=== PATIENT | male | born 1980 ===

== ENCOUNTER 2017-07-13 10:36 | Emergency (ER) | payer OTHER ==
[2017-07-13 10:51] VITALS: BMI 21.0
[2017-07-13 10:53] VITALS: BP 119/73; PULSE 84; RESP 20; TEMP 97.7; O2SAT 98
--- NOTE | 2017-07-13 11:45 | ED PDOC ---
Lower Extremity Pain/Injury Time Seen by Provider: 07/13/17 10:58 Chief Complaint (Nursing): Lower Extremity Problem/Injury Chief Complaint (Provider): Right Toe Injury History Per: Patient History/Exam Limitations: no limitations Current Symptoms Are (Timing): Still Present Additional Complaint(s): Erich is a 37 y/o male who presents to the ED complaining of bruising to his right big toe after hitting his foot accidentally. He has no past medical history or associated symptoms. PMD: None Provided Past Medical History Reviewed: Historical Data, Nursing Documentation, Vital Signs Vital Signs: Last Vital Signs Temp 97.7 F 07/13/17 10:51 Pulse 84 07/13/17 10:51 Resp 20 07/13/17 10:51 BP 119/73 07/13/17 10:51 Pulse Ox 98 07/13/17 10:51 - Medical History PMH: No Chronic Diseases - Surgical History Surgical History: No Surg Hx - Family History Family History: States: Unknown Family Hx - Allergies Allergies/Adverse Reactions: Allergies Allergy/AdvReac Type Severity Reaction Status Date / Time No Known Allergies Allergy Verified 07/13/17 11:02 Review of Systems ROS Statement: Except As Marked, All Systems Reviewed And Found Negative Musculoskeletal: Positive for: Foot Pain (right big toe) Physical Exam - Reviewed Nursing Documentation Reviewed: Yes Vital Signs Reviewed: Yes - Physical Exam Appears: Positive for: Well, No Acute Distress Cardiovascular/Chest: Negative for: Murmur Respiratory: Negative for: Respiratory Distress Pulses-Dorsalis Pedis (L): 2+ Pulses-Dorsalis Pedis (R): 2+ Extremity: Positive for: Normal ROM, Tenderness (right big toe), Capillary Refill (<2 seconds), Deformity (hematoma right big toe), Swelling. Negative for : Pedal Edema Neurologic/Psych: Positive for: Alert, Oriented. Negative for: Motor/Sensory Deficits - ECG O2 Sat by Pulse Oximetry: 98 (RA) Pulse Ox Interpretation: Normal Medical Decision Making Medical Decision Making: Time: 11:37 Initial Impression: Toe Injury Initial Plan: --XR Right Foot --Podiatry Consult Time: 11:45 --Podiatry now aware of patient and will see him in ED Time: 12:28 FINDINGS: BONES: Acute findings: First distal phalangeal tuft comminuted fracture with splaying of the distal fracture fragment 1 mm from the donor site. Additional fibular sided fracture 1st distal phalanx with intra-articular extension no significant displacement here perceived Chronic appearing findings: Dorsal cortical hyperostoses. Anterior and posterior tibiotalar posttraumatic appearing hyperostoses. Concomitant appearing os trigonum possible. JOINTS: Tibiotalar arthrosis. Inter tarsal arthrosis SOFT TISSUES: Oft tissue swelling forefoot and great toe OTHER FINDINGS: None. IMPRESSION: Acute fractures as above. Additional chronic findings as above Time: 14:56 --Podiatry saw pt and evaluated and wrapped up foot. pt has outpt podiatry follow up Patient is stable for discharge home. Scribe Attestation: Documented by Tayo Rock, acting as a scribe for Sheila Muro MD Provider Scribe Attestation: All medical record entries made by the Scribe were at my direction and personally dictated by me. I have reviewed the chart and agree that the record accurately reflects my personal performance of the history, physical exam, medical decision making, and the department course for this patient. I have also personally directed, reviewed, and agree with the discharge instructions and disposition. Disposition - Clinical Impression Clinical Impression: Foot fracture - Patient ED Disposition Is Patient to be Admitted: No Counseled Patient/Family Regarding: Studies Performed, Diagnosis, Need For Followup, Rx Given - Disposition Referrals: [facility] [Outside] Podiatry Clinic [Outside] Disposition: Routine/Home Disposition Time: 14:00 Condition: IMPROVED Additional Instructions: follow up with podiatry clinic next fri return to the ED with any worsening or concerning symptoms Instructions: Foot Fracture (DC) Forms: [facility] (M[place]itanian), [facility] ED School/Work Excuse
--- NOTE | 2017-07-13 12:29 | RAD ---
PROCEDURE: Right Foot Radiographs. HISTORY: r foot pain - merna great toe COMPARISON: None. FINDINGS: BONES: Acute findings: First distal phalangeal tuft comminuted fracture with splaying of the distal fracture fragment 1 mm from the donor site. Additional fibular sided fracture 1st distal phalanx with intra-articular extension no significant displacement here perceived Chronic appearing findings: Dorsal cortical hyperostoses. Anterior and posterior tibiotalar posttraumatic appearing hyperostoses. Concomitant appearing os trigonum possible. JOINTS: Tibiotalar arthrosis. Inter tarsal arthrosis SOFT TISSUES: Oft tissue swelling forefoot and great toe OTHER FINDINGS: None. IMPRESSION: Acute fractures as above. Additional chronic findings as above
--- NOTE | 2017-07-13 18:45 | CP.PCM.CON ---
History of Present Illness - History of Present Illness History of Present Illness: Consult note - Dr. Adams 37 year old male with no significant PMHx was seen and evaluated at bedside in ED for right hallux pain. Patient reports that an heavy object fell on his right toe yesterday. Patient states that after the incident, he felt immediate pain. Patient reports that he took tylenol which helped him with the pain. Patient reports that he has been icing the right foot since yesterday. Patient also reports that he has been walking with the flip-flops in the house after the injury. Patient reports that the pain got worst overnight and decided to come to the ED today. Patient also reports that the right toe became swollen and little discolored. Patient denies of any other pedal complains at this time. Patient denies of any recent F/N/V/C/SOB/CP/headache. PMHx: Denies PSHx: Denies Allergies: N.K.D.A SHx: Denies smoking, denies EtOH or illicit drug usage Review of Systems - Constitutional Constitutional: As Per HPI Past Patient History - Infectious Disease Hx of Infectious Diseases: None - Past Social History Smoking Status: Never Smoked - PSYCHIATRIC Hx Substance Use: No - SURGICAL HISTORY Hx Surgeries: No - ANESTHESIA Hx Anesthesia: No Meds Allergies/Adverse Reactions: Allergies Allergy/AdvReac Type Severity Reaction Status Date / Time No Known Allergies Allergy Verified 07/13/17 11:02 Physical Exam - Constitutional Appears: Well, Non-toxic, No Acute Distress - Extremities Exam Additional comments: VASC: DP/PT pulses are palpable 2/4 B/L. Cap refill time: < 3 seconds to all digits. Skin temperature warm to cool from proximal to distal. non-pitting edema with diffuse ecchymosis noted distal to the 1st MTPJ on medial, plantar and dorsal aspect DERM: Subungual hematoma approx 15% noted on the lateral proximal corner, no open lesions, no interdigital maceration. No clinical suspicion of active infection NEURO: Epicritic and protective sensation intact ORTHO: Active ROM intact at 1st MTPJ, pain on palpation of the hallux on the right - Neurological Exam Neurological exam: Alert, Oriented x3 - Psychiatric Exam Psychiatric exam: Normal Affect, Normal Mood Results - Vital Signs Recent Vital Signs: Last Vital Signs Temp 97.7 F 07/13/17 10:51 Pulse 84 07/13/17 10:51 Resp 20 07/13/17 10:51 BP 119/73 07/13/17 10:51 Pulse Ox 98 07/13/17 14:57 Assessment & Plan - Assessment and Plan (Free Text) Assessment: 37 year old male with no significant PMHx was evaluated for right distal phalanx comminuted, non-displaced fracture of the hallux Plan: Patient seen and evaluated at [facility] Discussed in details with attending Dr. Bryan Murphy and chart reviewed X-rays of the right foot ordered/reviewed - Multiple radiolucent lines crossing the distal lateral aspect of the distal phalanx of the hallux. Fragments appear in well alignment. Consistent with non-displaced, comminuted fracture Patient educated of the RICE protocol Patient educated to take motrin if the pain is not tolerable Patient educated to remain in a surgical shoe while ambulating Patient educated to follow up in podiatry clinic for further evaluation Patient demonstrated verbal understanding Thank you for the podiatry consult and allowing to take part in patient care - Date & Time Date: 07/13/17 Time: 14:00
== END 2017-07-13 15:30 | disposition home or self-care (01) ==
LOC: H.ER 10:36
DX: S92.901A Unspecified fracture of right foot, initial encounter for closed fracture (principal); W22.8XXA Striking against or struck by other objects, initial encounter; Y92.89 Other specified places as the place of occurrence of the external cause